=== PATIENT | male | born 1965 | race Caucasian/White ===

== ENCOUNTER 2016-12-14 18:27 | Emergency (ER) | payer OTHER ==
[2016-12-14 18:43] VITALS: RESP 18; TEMP 98.4
--- NOTE | 2016-12-14 18:53 | DX ---
Chest, PA and Lateral Views, at 6:45 p.m. Clinical History: 50-year-old male with a cough and shortness of breath for 2 weeks. Comparison Study: Chest, dated July 27, 2014. Findings: The cardiac and mediastinal silhouette is normal in size. There is a mild degree of central perihilar bronchial wall thickening. There is mild eventration of the anterior right hemidiaphragm. There is no focal alveolar consolidation, pleural effusion, peripheral interstitial edema, or pneumot horax. The minimal right apical pleural thickening is unchanged. The trachea is midline. The osseous structures are age-appropriate. Impression: Mild perihilar bronchitis, without a focal infiltrate.
--- NOTE | 2016-12-14 18:59 | UCPHY ---
H & P Time Seen by Provider: 12/14/16 18:45 Patient Type: New HPI/ROS: 50-year-old male presents complaining of 10 days of dry cough, and has noticed this sometimes when he is lying down he feels like he has to gasp for breath. No fevers no chills no runny nose no sore throat. No leg pain or leg injury no leg swelling. No family history of blood clot and no prior history of blood clots in himself. No chest pain Review of systems As per HPI General no fever no chills no weakness HEENT no eye pain no eye discharge. No eye redness, no sore throat Respiratory positive cough, positive shortness of breath Cardiac no chest pain, no peripheral edema GI no abdominal pain, no diarrhea, no constipation, no nausea, no vomiting no flank pain, no hematuria, no dysuria Musculoskeletal no myalgias, no joint pain Heme no easy bruising, no easy bleeding Endo no polyuria, no polydipsia Skin no rashes, no pruritus Neuro no syncope, no dizziness, no headaches Psych is no suicidal ideation, no homicidal ideation Past Medical/Surgical History: None Social History: Smokes cannabis daily Smoking Status: Never smoked Physical Exam: 50-year-old male alert and oriented no acute distress nontoxic appearance afebrile HEENT atraumatic normocephalic, extraocular muscles intact, anicteric Oropharynx negative for erythema negative exudate, tolerating her own secretions Neck supple no meningismus Lungs clear to auscultation bilaterally Heart regular rate and rhythm without murmur rub or gallop Abdomen nondistended normoactive bowel sounds soft nontender Back no CVA tenderness, no step-offs, no spinal tenderness Extremities no cyanosis clubbing or edema Neuro alert and oriented, no focal deficits Constitutional: Initial Vital Signs Temperature (C) 36.9 C 12/14/16 18:41 Heart Rate 75 12/14/16 18:41 Respiratory Rate 18 12/14/16 18:41 Blood Pressure 158/88 H 12/14/16 18:41 O2 Sat (%) 95 12/14/16 18:41 O2 Delivery Mode Room Air Allergies/Adverse Reactions: No Known Allergies Allergy (Unverified 08/21/10 12:22) Home Medications: Medication Instructions Recorded NO HOME MEDS 08/21/10 Amoxicillin Trihydrate 500 mg PO Q8 #21 cap 12/04/11 [Amoxicillin 500mg cap] Guaifenesin/Codeine Phosphate 5 ml PO QID #1 syrup 12/04/11 [Guaifenesin-Codeine Syrup] AZITHROMYCIN [Z-PACK] 250 mg PO DAILY #6 tab 12/14/16 Benzonatate [Tessalon Pearles (RX)] 100 mg PO TID PRN #30 cap 12/14/16 Medical Decision Making - Diagnostics Imaging: Chest x-ray consistent with bronchitis no focal infiltrate ED Course/Re-evaluation: Patient seen and evaluated for cough times 10 days with occasional episode of shortness of breath when lying down. Chest x-ray consistent with bronchitis Physical exam benign Differential diagnosis Bronchitis, pneumonia, URI, reactive airway disease Impression Bronchitis Plan Z-Robert Darek Ruiz Follow-up primary care physician - Data Points Laboratory Results: Laboratory Results 12/14/16 19:09 12/14/16 19:09 12/14/16 19:09 WBC 4.88 10^3/uL (3.80-9.50) RBC 5.45 10^6/uL (4.40-6.38) Hgb 16.1 g/dL (13.7-17.5) Hct 44.8 % (40.0-51.0) MCV 82.2 fL (81.5-99.8) MCH 29.5 pg (27.9-34.1) MCHC 35.9 g/dL (32.4-36.7) RDW 12.5 % (11.5-15.2) Plt Count 215 10^3/uL (150-400) MPV 8.7 fL (8.7-11.7) Neut % (Auto) 55.1 % (39.3-74.2) Lymph % (Auto) 32.0 % (15.0-45.0) Lewis % (Auto) 9.2 % (4.5-13.0) Eos % (Auto) 2.7 % (0.6-7.6) Baso % (Auto) 0.6 % (0.3-1.7) Nucleat RBC Rel Count 0.0 % (0.0-0.2) Absolute Neuts (auto) 2.69 10^3/uL (1.70-6.50) Absolute Lymphs (auto) 1.56 10^3/uL (1.00-3.00) Absolute Monos (auto) 0.45 10^3/uL (0.30-0.80) Absolute Eos (auto) 0.13 10^3/uL (0.03-0.40) Absolute Basos (auto) 0.03 10^3/uL (0.02-0.10) Absolute Nucleated RBC 0.00 10^3/uL (0-0.01) Immature Gran % 0.4 % (0.0-1.1) Immature Gran # 0.02 10^3/uL (0.00-0.10) PT 12.1 SEC (12.0-15.0) INR 0.91 (0.83-1.16) APTT 27.5 SEC (23.0-38.0) D-Dimer < 0.27 ug/mLFEU (0.00-0.50) Sodium 138 mEq/L (134-144) Potassium 3.5 mEq/L (3.5-5.2) Chloride 102 mEq/L (97-110) Carbon Dioxide 24 mEq/l (22-31) Anion Gap 12 mEq/L (8-16) BUN 18 mg/dL (7-23) Creatinine 0.8 mg/dL (0.7-1.3) Estimated GFR > 60 Glucose 129 H mg/dL (70-100) Calcium 8.9 mg/dL (8.5-10.4) Total Bilirubin 0.9 mg/dL (0.1-1.4) AST 27 IU/L (17-59) ALT 54 IU/L (21-72) Alkaline Phosphatase 63 IU/L (38-126) Total Protein 7.1 g/dL (6.3-8.2) Albumin 4.0 g/dL (3.5-5.0) Departure - Departure Disposition: Home, Routine, Self-Care Clinical Impression: Bronchitis Condition: Good Instructions: Acute Bronchitis (ED) Referrals: IN STATE,. [Primary Care Provider] - As per Instructions Prescriptions: Benzonatate [Tessalon Pearles (RX)] 100 mg PO TID PRN #30 cap PRN Reason: Cough, Severe AZITHROMYCIN [Z-PACK] 250 mg PO DAILY #6 tab - PQRS PQRS Measurement: Not applicable
[2016-12-14 19:14] LABS: % IMMATURE GRANULYOCYTES 0.4 % (0.0-1.1); ABSOLUTE IMMATURE GRANULOCYTES 0.02 10^3/uL (0.00-0.10); ADD DIFF? NO; ADD MORPH? NO; ADD SCAN? NO; ATYPICAL LYMPHOCYTE FLAG 30 (0-99); FRAGMENT RBC FLAG 0 (0-99); HEMATOCRIT 44.8 % (40.0-51.0); HEMOGLOBIN 16.1 g/dL (13.7-17.5); LEFT SHIFT FLG 0 (0-99); LIPEMIA HEMOLYSIS FLAG 90 (0-99); MEAN CELL HEMOGLOBIN 29.5 pg (27.9-34.1); MEAN CELL HEMOGLOBIN CONCENTR. 35.9 g/dL (32.4-36.7); MEAN CELL VOLUME 82.2 fL (81.5-99.8); MEAN PLATELET VOLUME 8.7 fL (8.7-11.7); PLATELET CLUMPS FLAG 10 (0-99); PLATELET COUNT 215 10^3/uL (150-400); RED BLOOD CELL COUNT 5.45 10^6/uL (4.40-6.38); RED CELL DISTRIBUTION WIDTH 12.5 % (11.5-15.2)
[2016-12-14 19:28] LABS: INR 0.91 (0.83-1.16); PROTIME(PATIENT) 12.1 SEC (12.0-15.0)
[2016-12-14 19:29] LABS: APTT 27.5 SEC (23.0-38.0)
[2016-12-14 19:30] LABS: ALANINE AMINOTRANSFERASE 54 IU/L (21-72); ALKALINE PHOSPHATASE 63 IU/L (38-126); ANION GAP 12 mEq/L (8-16); ASPARTATE AMINOTRANSFERASE 27 IU/L (17-59); BILIRUBIN,TOTAL 0.9 mg/dL (0.1-1.4); CALCIUM 8.9 mg/dL (8.5-10.4); CARBON DIOXIDE 24 mEq/l (22-31); CHLORIDE 102 mEq/L (97-110); CREATININE 0.8 mg/dL (0.7-1.3); GLOMERULAR FILTRATION RATE > 60; GLUCOSE 129 mg/dL (70-100); POTASSIUM 3.5 mEq/L (3.5-5.2); SODIUM 138 mEq/L (134-144); TOTAL PROTEIN 7.1 g/dL (6.3-8.2)
[2016-12-14 19:41] VITALS: BP 134/95; PULSE 93; O2SAT 93
== END 2016-12-14 19:41 | disposition home or self-care (01) ==
LOC: CED 18:27
DX: J20.9 Acute bronchitis, unspecified (principal); F12.90 Cannabis use, unspecified, uncomplicated
CPT/HCPCS: 71020-PO; 80053-PO; 85025-PO; 85378-PO; 85610-PO; 85730-PO; G0463-PO

== ENCOUNTER → 2018-02-12 | Emergency (ER) | payer OTHER ==
[2018-02-12 18:01] VITALS: BP 133/84; PULSE 76; RESP 16; TEMP 98.4; O2SAT 95
--- NOTE | 2018-02-12 18:19 | EDPHY ---
H & P Time Seen by Provider: 02/12/18 18:02 HPI/ROS: 52-year-old male states he was at his son's baseball game and went to sit in a chair when he felt a sudden sting to his back, his inspected it and was unable find a stinger there but he continues to have pain and swelling. No fevers or chills. No pain prior to sitting in the chair. Review of systems General no fever no chills no weakness HEENT no eye pain no eye discharge. No eye redness, no sore throat Respiratory no cough, no shortness of breath Cardiac no chest pain, no peripheral edema GI no abdominal pain, no diarrhea, no constipation, no nausea, no vomiting no flank pain, no hematuria, no dysuria Musculoskeletal no myalgias, no joint pain Heme no easy bruising, no easy bleeding Endo no polyuria, no polydipsia Skin positive rashes, no pruritus Neuro no syncope, no dizziness, no headaches Psych is no suicidal ideation, no homicidal ideation Past Medical/Surgical History: Non contributory Social History: Denies excessive alcohol drug or tobacco use Smoking Status: Never smoked Physical Exam: 52-year-old male alert and oriented no acute distress nontoxic appearance afebrile Atraumatic normocephalic Neck no JVD Lungs clear to auscultation, no respiratory distress Heart regular rate and rhythm Extremities no cyanosis clubbing edema Skin-back Left upper back-1.5 cm erythematous macule with central excoriation, no ulceration no foreign body, no vesicles Positive blanching, no fluctuance Constitutional: Initial Vital Signs Temperature (C) 36.9 C 02/12/18 17:57 Heart Rate 76 02/12/18 17:57 Respiratory Rate 16 02/12/18 17:57 Blood Pressure 133/84 H 02/12/18 17:57 O2 Sat (%) 95 02/12/18 17:57 O2 Delivery Mode Room Air Allergies/Adverse Reactions: No Known Allergies Allergy (Verified 02/12/18 17:56) Home Medications: Medication Instructions Recorded Albuterol Hfa Anes Only 02/12/18 Medical Decision Making ED Course/Re-evaluation: Patient seen and evaluated for possible bite to left back while at his son's baseball game this morning. Impression Insect sting and/or bite Plan Ice, ibuprofen, Benadryl, hydrocortisone cream Return if worsening Follow-up PCP Differential Diagnosis: Differential diagnosis considered but not limited to: Insect sting, spider bite, early shingles Departure - Departure Disposition: Home, Routine, Self-Care Clinical Impression: Insect sting Condition: Good Instructions: Insect Bite or Sting (ED) Additional Instructions: Your rash on your back looks like an insect sting. There is a small chance that it is the very early signs of a rash commonly called shingles. If the rash is getting worse , I recommend that you have it rechecked with your primary care doctor or an urgent care or return to the Emergency Dept. For now I recommend, ice, ibuprofen, benadryl. You can also put benadryl cream and hydrocortisone cream on the bite itself. DO NOT APPLY HEAT Referrals: Gwen Cornejo MD [Primary Care Provider] - As per Instructions
== END | disposition home or self-care (01) ==
LOC: CED 17:46
DX: T63.481A Toxic effect of venom of other arthropod, accidental (unintentional), initial encounter (principal)

== ENCOUNTER 2018-11-25 11:24 | Emergency (ER) | payer OTHER ==
[2018-11-25 11:34] VITALS: BP 138/93
[2018-11-25] MEDS ORDERED: LET GEL TOPICAL 1 EA SYR TP ONE (11:46)
--- NOTE | 2018-11-25 11:53 | EDPHY ---
H & P Time Seen by Provider: 11/25/18 11:39 HPI/ROS: 2 days prior to arrival this patient was walking barefoot in his home when he sustained a wood splinter to the plantar aspect of his foot with moderate pain. He was seen by [facility] yesterday in the injected the area, performed an incision and removed a small splinter. However the patient reports worsening pain today is concerned that he may still have a foreign body in the foot. He reports 3/10 pain at baseline becomes severe with any attempts to bear weight on the foot. Bearing weight causes more sharp pain. ROS: Constitutional: No fevers or other complaints Integumentary: No erythema or drainage. Neuro: No numbness or tingling the foot 5 point review of symptoms is performed and otherwise negative with exception of pertinent positives and negatives listed in HPI and ROS Past Medical/Surgical History: Otherwise healthy Smoking Status: Never smoked Physical Exam: Physical Exam Vital signs are normal. General: No acute distress HEENT: Atraumatic. Eyes: Pupils equal and react to light. Extraocular motions are intact. Lungs: No respiratory distress. Cardiac: Brisk capillary refill is intact throughout. Pulses are 2+ and symmetric in the affected extremity. Skin: No rash or pallor. Extremities: Atraumatic normal except for left foot Left foot: Patient has a small incision 1 cm in size to the plantar forefoot with tenderness to the surrounding area. No significant warmth. No erythema Neuro: Alert and oriented x3 with no sensorimotor deficits. Initial differential diagnosis: Retained foreign body, painful wound, early wound infection Constitutional: Initial Vital Signs Temperature (C) 36.6 C 11/25/18 11:27 Heart Rate 66 11/25/18 11:27 Respiratory Rate 16 11/25/18 11:27 Blood Pressure 138/93 H 11/25/18 11:27 O2 Sat (%) 98 11/25/18 11:27 O2 Delivery Mode Room Air Allergies/Adverse Reactions: No Known Allergies Allergy (Verified 11/25/18 11:25) Home Medications: Medication Instructions Recorded Albuterol Hfa Anes Only 02/12/18 Doxycycline Hyclate [Vibramycin 100 mg PO BID #14 cap 11/25/18 100 MG (*)] traMADol [Ultram 50 mg (*)] 50 - 100 mg PO Q4 PRN #15 tab 11/25/18 MDM/Departure - MDM Diagnostics: Appreciate no radiopaque foreign bodies on x-ray of foot by my interpretation Imaging: I viewed and interpreted images myself Procedures: Foreign body removal: After verbal consent patient is placed in a prone position, let solution with incomplete anesthesia followed by a 50 50 mix of 0.5 % Marcaine with epi and 1% plain lidocaine -total of 4 mL with 27 gauge needle after cleaning with baby shampoo and saline. Patient had good results. Using magnifying loops are moved small foreign body consistent with wood only a few mm in length. Patient tolerated this well. On initial inspection I appreciate no other foreign bodies. Dressing is then placed in patient's sent for x-ray ED Course/Re-evaluation: Let solution applied at 11:50 a.m. Discussion: Small foreign body removed from foot wound. I do not appreciate any deeper foreign bodies and direct examination through 1 cm wound the base of the foot-surgical incision placed by Dermatology yesterday. He does have slight warmth to touch to the surrounding urine think may have an early wound infection. Given this clinical sign along with the symptom of increasing pain, will cover the patient for infection with doxycycline. I counseled regarding this. Also make follow-up appointment to see the yeast culture operator for any ongoing symptoms. He may require an MRI ultimately to rule out a potential deeper retained foreign body - Depart Disposition: Home, Routine, Self-Care Clinical Impression: Penetrating foot wound Qualifiers: Encounter type: initial encounter Laterality: left Qualified Code(s): S91.332A - Puncture wound without foreign body, left foot, initial encounter Condition: Good Instructions: Acute Wounds (ED) Additional Instructions: Diagnosis: Penetrating foot wound Plan: Clean daily with warm soapy water For a bandage during the day when up and about but taken off tonight to get some air to the wound Doxycycline antibiotic Ibuprofen and Tylenol plus tramadol if needed for pain that prevents sleep. No driving, alcohol or work on tramadol. Follow-up with football scout, Dr. Mccullough for any ongoing symptoms despite treatment plan. Prescriptions: Doxycycline Hyclate [Vibramycin 100 MG (*)] 100 mg PO BID #14 cap traMADol [Ultram 50 mg (*)] 50 - 100 mg PO Q4 PRN #15 tab PRN Reason: breakthrough pain Referrals: Gwen Cornejo MD [Primary Care Provider] - As per Instructions Donald Mccullough DPM [Doctor of Podiatric Medicine] - As per Instructions
== END 2018-11-25 13:16 | disposition home or self-care (01) ==
LOC: CED 11:24
DX: S91.332D Puncture wound without foreign body, left foot, subsequent encounter (principal); X58.XXXA Exposure to other specified factors, initial encounter; Y92.019 Unspecified place in single-family (private) house as the place of occurrence of the external cause; Y93.01 Activity, walking, marching and hiking; Y99.9 Unspecified external cause status
CPT/HCPCS: 73620-PO

== ENCOUNTER → 2018-12-08 | Outpatient (CLI) | payer OTHER | LOC: FIMAGING 13:54 | PROVIDERS: ATTEND Podiatrist Foot & Ankle Surgery | DX: S90.852A Superficial foreign body, left foot, initial encounter (principal) ==

== ENCOUNTER → 2019-05-13 | Emergency (ER) | payer OTHER | END | disposition home or self-care (01) | LOC: CED 17:02 ==